=== PATIENT | male | born 1985 | race American Indian/Alaskan Native ===

== ENCOUNTER 2018-01-21 10:52 | Emergency (ER) | payer MEDICARE ==
[2018-01-21 10:53] VITALS: BMI 20.7
[2018-01-21 11:01] VITALS: O2SAT 98
--- NOTE | 2018-01-21 11:43 | C.PDOC ---
History Of Present Illness 32 year old male patient with hx of asthma presents to the ER with c/o right hand pain. Patient reports he punched a wall on November 27. Patent states he went to [facility] [facility] who gave him XR which showed a fracture. [facility] splinted his hand for him , but he took off the splint today. Patent notes after that he started feeling pain. Patient denies weakness and numbness. Chief Complaint (Nursing): Upper Extremity Problem/Injury History Per: Patient History/Exam Limitations: no limitations Onset/Duration Of Symptoms: Hrs Current Symptoms Are (Timing): Still Present Past Medical History Reviewed: Historical Data, Nursing Documentation, Vital Signs Vital Signs: Last Vital Signs Temp 97.6 F 01/21/18 11:56 Pulse 62 01/21/18 11:56 Resp 18 01/21/18 11:56 BP 131/88 01/21/18 11:56 Pulse Ox 98 01/24/18 21:21 - Medical History PMH: Asthma - [facility] Procedures INJECT/INFUSE NEC (04/01/14) NEBULIZER THERAPY (01/20/15) Family History: States: Unknown Family Hx - Social History Hx Tobacco Use: No Hx Alcohol Use: No Hx Substance Use: No - Immunization History Hx Tetanus Toxoid Vaccination: No Hx Influenza Vaccination: No Hx Pneumococcal Vaccination: No Review Of Systems Except As Marked, All Systems Reviewed And Found Negative. Musculoskeletal: Positive for: Hand Pain (right) Neurological: Negative for: Weakness, Numbness Physical Exam - Physical Exam Appears: Well, Non-toxic, No Acute Distress Skin: Normal Color, Warm, Dry Head: Normacephalic Extremity: Normal ROM, Tenderness (right hand ), Capillary Refill (<2 sec ), No Deformity Neurological/Psych: Oriented x3, Normal Speech ED Course And Treatment O2 Sat by Pulse Oximetry: 98 (RA) Pulse Ox Interpretation: Normal Medical Decision Making Medical Decision Making: Impression: right hand pain Plans: -- Prescribed albuterol -- velcro hand splint Reassess: Patient is resting comfortably. Patient states he is feeling better. Patient remains stabled and afebrile. Patient will be given pain medications and albuterol. Patient is also advised to f/u with PMD in 1-2 days. Disposition - Disposition Referrals: [facility] [Outside] [facility] [Outside] [facility] [place] [Outside] Disposition: HOME/ ROUTINE Disposition Time: 12:10 Condition: GOOD Prescriptions: Albuterol HFA [Ventolin HFA 90 mcg/actuation (8 g)] 2 puff IH [id number] #1 puff Ibuprofen [Motrin] 600 mg PO Q6 #20 tab Forms: [facility] (Tristanian) - Clinical Impression Clinical Impression: Hand fracture - Scribe Statement The provider has reviewed the documentation as recorded by the Scribe Shah Do Provider Attestation: All medical record entries made by the Scribe were at my direction and personally dictated by me. I have reviewed the chart and agree that the record accurately reflects my personal performance of the history, physical exam, medical decision making, and the department course for this patient. I have also personally directed, reviewed, and agree with the discharge instructions and disposition.
[2018-01-21 12:00] VITALS: BP 131/88; PULSE 62; RESP 18; TEMP 97.6
== END 2018-01-21 12:10 | disposition home or self-care (01) ==
LOC: C.ER 10:52
DX: S62.91XG Unspecified fracture of right hand, subsequent encounter for fracture with delayed healing (principal); W22.01XD Walked into wall, subsequent encounter

== ENCOUNTER 2018-02-05 11:49 | Emergency (ER) | payer MEDICARE ==
[2018-02-05 11:49] VITALS: BMI 20.7
[2018-02-05] MEDS ORDERED: Alum-Mag Hydrox-Simethicone Susp (30 mL) PO STA (12:53)
[2018-02-05] MEDS ORDERED: Alum-Mag Hydrox-Simethicone Susp (30 mL) ONE (13:29)
[2018-02-05 13:59] LABS: BASO % 0.6 % (0.0-2.0); EOS % 0.7 % (0.0-4.0); HEMOGLOBIN 15.8 g/dL (12.0-18.0); LYMPH # 1.4 K/uL (1.0-4.3); LYMPH % 31.7 % (20.0-40.0); MEAN CELL VOLUME 92.2 fL (80.0-94.0); MEAN CORPUSCULAR HEMOGLOBIN 31.5 pg (27.0-31.0); MEAN CORPUSCULAR HGB CONC 34.2 g/dL (33.0-37.0); MEAN PLATELET VOLUME 8.8 fL (7.2-11.7); MONO # 0.6 K/uL (0.0-0.8); MONO % 12.4 % (0.0-10.0); NEUT # 2.5 K/uL (1.8-7.0); NEUT % 54.6 % (50.0-75.0); NRBC % 0.3 % (0.0-2.0); RED CELL DISTRIBUTION WIDTH 13.7 % (11.5-14.5); WHITE BLOOD COUNT 4.5 K/uL (4.8-10.8)
--- NOTE | 2018-02-05 14:19 | C.PDOC ---
History Of Present Illness 32 y/o male presents to the ER complaining of abdominal pain which has been present for the past 2 days. Patient states that he has been drinking ETOH. Patient reports that he does not have a PMD. Denies having nausea, vomiting, diarrhea, dysuria, and hematuria. Time Seen by Provider: 02/05/18 12:28 Chief Complaint (Nursing): Abdominal Pain History Per: Patient History/Exam Limitations: no limitations Onset/Duration Of Symptoms: Days Current Symptoms Are (Timing): Still Present Severity: Moderate Location Of Pain/Discomfort: Epigastric Radiation Of Pain To:: None Quality Of Discomfort: Cramping Alleviating Factors: None Recent travel outside of the [place]: No Past Medical History Reviewed: Historical Data, Nursing Documentation, Vital Signs Vital Signs: Last Vital Signs Temp 98.5 F 02/05/18 15:29 Pulse 60 02/05/18 15:29 Resp 16 02/05/18 15:29 BP 138/80 02/05/18 15:29 Pulse Ox 99 02/05/18 15:29 - Medical History PMH: Asthma Denies: Diabetes, Hepatitis, HIV, HTN, Chronic Kidney Disease, Seizures, Sexually Transmitted Disease Surgical History: No Surg Hx - [facility] Procedures INJECT/INFUSE NEC (04/01/14) NEBULIZER THERAPY (01/20/15) Family History: States: No Known Family Hx - Social History Hx Tobacco Use: No Hx Alcohol Use: No Hx Substance Use: No - Immunization History Hx Tetanus Toxoid Vaccination: No Hx Influenza Vaccination: No Hx Pneumococcal Vaccination: No Review Of Systems Except As Marked, All Systems Reviewed And Found Negative. Constitutional: Negative for: Fever, Chills Gastrointestinal: Positive for: Nausea, Abdominal Pain Physical Exam - Physical Exam Appears: Non-toxic, No Acute Distress Skin: Normal Color, Warm, Dry Head: Atraumatic, Normacephalic Eye(s): bilateral: Normal Inspection Nose: Normal Oral Mucosa: Moist Neck: Supple Chest: Symmetrical Cardiovascular: Rhythm Regular Respiratory: Normal Breath Sounds, No Rales, No Rhonchi, No Wheezing Gastrointestinal/Abdominal: Normal Exam, Soft, No Tenderness, No Guarding Extremity: Normal ROM Neurological/Psych: Oriented x3, Normal Speech ED Course And Treatment - Laboratory Results Result Diagrams: 02/05/18 13:45 02/05/18 13:45 Lab Interpretation: Normal O2 Sat by Pulse Oximetry: 98 (RA) Pulse Ox Interpretation: Normal Progress Note: Patient treated with maalox. On re-evaluation abdomen soft in no distress Medical Decision Making Medical Decision Making: Plan: --Labs --UA --Maalox PO Disposition Counseled Patient/Family Regarding: Studies Performed, Diagnosis, Need For Followup - Disposition Referrals: [facility] [Outside] [facility] [Outside] Disposition: HOME/ ROUTINE Disposition Time: 15:50 Condition: GOOD Additional Instructions: Follow up with clinic for further evaluation Instructions: Gastritis, Acute Abdomen (Belly Pain) Forms: [employer] (Vietnamese) - POA Present On Arrival: None - Clinical Impression Clinical Impression: Abdominal discomfort - PA / JUICE STANDARDIZER / Resident Statement MD/DO has reviewed & agrees with the documentation as recorded. - Scribe Statement The provider has reviewed the documentation as recorded by the Scribe Oscar Vital Provider Attestation All medical record entries made by the Scribe were at my direction and personally dictated by me. I have reviewed the chart and agree that the record accurately reflects my personal performance of the history, physical exam, medical decision making, and the department course for this patient. I have also personally directed, reviewed, and agree with the discharge instructions and disposition.
[2018-02-05 14:22] LABS: BLOOD UREA NITROGEN 13 mg/dL (9-20); CALCIUM 9.5 mg/dl (8.6-10.4); GFR NON-AFRICAN AMERICAN > 60; LIPASE 100 U/L (23-300)
[2018-02-05 14:38] LABS: ALB/GLOB RATIO 1.4 (1.0-2.1); ALBUMIN 4.8 g/dL (3.5-5.0); ALT/SGPT 35 U/L (21-72); AST/SGOT 42 U/L (17-59)
[2018-02-05 15:31] VITALS: BP 138/80; PULSE 60; RESP 16; TEMP 98.5
[2018-02-05 16:03] VITALS: O2SAT 98
== END 2018-02-05 15:30 | disposition home or self-care (01) ==
LOC: C.ER 11:49
DX: R10.13 Epigastric pain (principal)

== ENCOUNTER 2018-05-23 14:49 | Emergency (ER) | payer MEDICARE ==
[2018-05-23 14:49] VITALS: BMI 20.7
[2018-05-23 14:59] VITALS: TEMP 98
[2018-05-23] MEDS ORDERED: Albuterol-Ipratrop 3 mg / 0.5 (3 ml) UD IH STA (15:36)
[2018-05-23] MEDS ORDERED: Albuterol 0.083% Inhal Sol (2.5 mg/3 mL) UD INH STA (15:36)
[2018-05-23] MEDS ORDERED: Albuterol 0.083% Inhal Sol (2.5 mg/3 mL) UD ONE (15:49)
[2018-05-23] MEDS ORDERED: Albuterol-Ipratrop 3 mg / 0.5 (3 ml) UD ONE (15:49)
--- NOTE | 2018-05-23 15:52 | RAD ---
Date of service: 05/23/2018 HISTORY: productive cough/congestion/SOB COMPARISON: No prior. TECHNIQUE: Chest PA and lateral FINDINGS: LUNGS: No active pulmonary disease. PLEURA: No significant pleural effusion identified. No pneumothorax apparent. CARDIOVASCULAR: No aortic atherosclerotic calcification present. Normal cardiac size. No pulmonary vascular congestion. OSSEOUS STRUCTURES: No significant abnormalities. VISUALIZED UPPER ABDOMEN: Normal. OTHER FINDINGS: None. IMPRESSION: No active disease.
--- NOTE | 2018-05-23 16:04 | C.PDOC ---
History Of Present Illness 32 y/o male pt with hx of asthma presents to the ER c/o SOB and coughing with yellow sputum for a couple of days. Pt denies fever, vomiting, diarrhea and nausea. Time Seen by Provider: 05/23/18 15:03 Chief Complaint (Nursing): Shortness Of Breath History Per: Patient History/Exam Limitations: no limitations Onset/Duration Of Symptoms: Days Current Symptoms Are (Timing): Still Present Initiating Event: Upper Respiratory Illness Past Medical History Reviewed: Historical Data, Nursing Documentation, Vital Signs Vital Signs: Last Vital Signs Temp 98.0 F 05/23/18 14:54 Pulse 90 05/23/18 14:54 Resp 18 05/23/18 15:02 BP 123/81 05/23/18 14:54 Pulse Ox 97 05/23/18 14:54 - Medical History PMH: Asthma, Bronchitis - [facility] Procedures INJECT/INFUSE NEC (04/01/14) NEBULIZER THERAPY (01/20/15) Family History: States: No Known Family Hx - Social History Hx Tobacco Use: No Hx Alcohol Use: No Hx Substance Use: No - Immunization History Hx Tetanus Toxoid Vaccination: No Hx Influenza Vaccination: No Hx Pneumococcal Vaccination: No Review Of Systems Except As Marked, All Systems Reviewed And Found Negative. Constitutional: Negative for: Fever Respiratory: Positive for: Cough (with yellow sputum ), Shortness of Breath Gastrointestinal: Negative for: Nausea, Vomiting, Diarrhea Physical Exam - Physical Exam Appears: Non-toxic, No Acute Distress Skin: Warm, Dry Head: Normacephalic Eye(s): bilateral: Normal Inspection, EOMI Oral Mucosa: Moist Throat: Normal Neck: Normal ROM, Supple Chest: Symmetrical Cardiovascular: Rhythm Regular Respiratory: No Accessory Muscle Use, No Rales, No Rhonchi, No Stridor, Wheezing (b/l ) Neurological/Psych: Oriented x3, Normal Speech ED Course And Treatment O2 Sat by Pulse Oximetry: 97 (RA) Pulse Ox Interpretation: Normal - Other Rad chest X-Ray: Read By Radiologist Interpretation: Accession No. : [id number]. Patient Name / ID : SEBASTIAN MOSQUERA / [id number]. Exam Date : 05/23/2018 15:37:48 ( Approved ). Study Comment : Sex / Age : M / 32Y. Creator : Dm Villalobos MD. Dictator : Dm Villalobos MD. Installation Technician : Heat Set Operator : Dm Villalobos MD. Approver2 : Report Date : 05/23/2018 15:48:21. My Comment : . Date of service: 05/23/2018. HISTORY: productive cough/congestion/SOB. COMPARISON: No prior. TECHNIQUE: Chest PA and lateral. FINDINGS: LUNGS: No active pulmonary disease. PLEURA: No significant pleural effusion identified. No pneumothorax apparent. CARDIOVASCULAR: No aortic atherosclerotic calcification present. Normal cardiac size. No pulmonary vascular congestion. OSSEOUS STRUCTURES: No significant abnormalities. VISUALIZED UPPER ABDOMEN: Normal. OTHER FINDINGS: None. IMPRESSION: No active disease. Progress Note: Plans: --CXR. -- albuterol. -- Prednisone. -- nebulizer. -- peak flow. On re-eval patient feels better and is stable to be d/c home with PMD follow up. Disposition - Disposition Disposition: HOME/ ROUTINE Disposition Time: 16:23 Condition: IMPROVED Additional Instructions: Follow up with your PMD within 1-2 days. Return to ED if feel worse. Prescriptions: Albuterol 0.083% [Albuterol Sulfate 3 Ml] 3 ml IH .Q4-6H #100 vial predniSONE [predniSONE Tab] 2 tab PO DAILY #8 tab Albuterol HFA [Ventolin HFA 90 mcg/actuation (8 g)] 1 puff IH .Q4-6H #1 inhaler Azithromycin [Zithromax] 250 mg PO DAILY #4 tab Instructions: Asthma in Adults, Acute Bronchitis Forms: [facility] (Jamaican) - Clinical Impression Clinical Impression: Bronchitis with asthma, acute - PA / PRE K TEACHER / Resident Statement / has reviewed & agrees with the documentation as recorded. - Scribe Statement The provider has reviewed the documentation as recorded by the Anthony Shah Do All medical record entries made by the Scribe were at my direction and personally dictated by me. I have reviewed the chart and agree that the record accurately reflects my personal performance of the history, physical exam, medical decision making, and the department course for this patient. I have also personally directed, reviewed, and agree with the discharge instructions and disposition.
[2018-05-23 16:37] VITALS: BP 125/79; PULSE 80; RESP 16
[2018-05-23 16:46] VITALS: O2SAT 97
== END 2018-05-23 16:36 | disposition home or self-care (01) ==
LOC: C.ER 14:49
DX: J45.909 Unspecified asthma, uncomplicated (principal); F17.210 Nicotine dependence, cigarettes, uncomplicated

== ENCOUNTER 2018-07-21 19:08 | Emergency (ER) | payer MEDICARE ==
[2018-07-21 19:08] VITALS: BMI 20.7
--- NOTE | 2018-07-21 19:53 | C.PDOC ---
History Of Present Illness Patient presents to the ER with cough and congestion worsening over the past 2 weeks. He is currently speaking in complete sentences, tolerating PO. Denies fever, chills, nausea, or vomiting. Time Seen by Provider: 07/21/18 19:52 Chief Complaint (Nursing): Cough, Cold, Congestion History Per: Patient History/Exam Limitations: no limitations Onset/Duration Of Symptoms: Days (2 weeks) Current Symptoms Are (Timing): Still Present Severity: Moderate Pain Scale Rating Of: 4 Recent travel outside of the [place]: No Past Medical History Reviewed: Historical Data, Nursing Documentation, Vital Signs Vital Signs: Last Vital Signs Temp 97.7 F 07/21/18 19:22 Pulse 63 07/21/18 19:22 Resp 20 07/21/18 19:22 BP 126/90 07/21/18 19:22 Pulse Ox 99 07/21/18 19:22 - Medical History PMH: Asthma, Bronchitis Denies: HIV, HTN, Chronic Kidney Disease, Seizures, Sexually Transmitted Disease - [facility] Procedures INJECT/INFUSE NEC (04/01/14) NEBULIZER THERAPY (01/20/15) Family History: States: No Known Family Hx - Social History Hx Tobacco Use: No Hx Alcohol Use: No Hx Substance Use: No - Immunization History Hx Tetanus Toxoid Vaccination: No Hx Influenza Vaccination: No Hx Pneumococcal Vaccination: No Review Of Systems Constitutional: Negative for: Fever, Chills Cardiovascular: Negative for: Chest Pain, Palpitations Respiratory: Positive for: Cough, Other (Congestion) Gastrointestinal: Negative for: Nausea, Vomiting Neurological: Negative for: Weakness, Numbness Physical Exam - Physical Exam Appears: Non-toxic Skin: Warm, Dry Head: Normacephalic Oral Mucosa: Moist Throat: No Erythema, No Exudate Neck: Trachea Midline, Supple Chest: Symmetrical, No Tenderness Cardiovascular: Rhythm Regular Respiratory: No Rales, Rhonchi (Scattered), Wheezing (Scattered) Gastrointestinal/Abdominal: Soft, No Tenderness Neurological/Psych: Oriented x3 ED Course And Treatment O2 Sat by Pulse Oximetry: 99 (Room air) Pulse Ox Interpretation: Normal Progress Note: Albuterol nebulizer and zithromax administered. Reevaluation Time: 21:28 Reassessment Condition: Improved Critical Care Time - Critical Care Note Total Time (in mins): 30 Documented critical care: time excludes all time spent performing seperately billable procedures. Disposition Counseled Patient/Family Regarding: Studies Performed, Diagnosis, Need For Followup, Rx Given, Smoking Cessation - Disposition Referrals: [facility] [Outside] Disposition: HOME/ ROUTINE Disposition Time: 19:53 Condition: FAIR Additional Instructions: Please return if symptoms recur Prescriptions: Albuterol HFA [Ventolin HFA 90 mcg/actuation (8 g)] 2 puff IH [id number] #1 puff Azithromycin [Zithromax Tri-Josue] 500 mg PO DAILY #3 tablet Prednisone [Deltasone] 20 mg PO DAILY #5 tablet Instructions: Asthma, Adult (DC), Upper Respiratory Infection (ED) Forms: [employer] ([place] Helen[place]) - Clinical Impression Clinical Impression: Bronchitis with asthma, acute - Scribe Statement The provider has reviewed the documentation as recorded by the Scribyaima Garzon All medical record entries made by the Marlysibyaima were at my direction and personally dictated by me. I have reviewed the chart and agree that the record accurately reflects my personal performance of the history, physical exam, medical decision making, and the department course for this patient. I have also personally directed, reviewed, and agree with the discharge instructions and disposition.
[2018-07-21] MEDS: Albuterol-Ipratrop 3 mg / 0.5 (3 ml) UD IH SCH ×2 (20:11→20:33)
[2018-07-21] MEDS ORDERED: Albuterol-Ipratrop 3 mg / 0.5 (3 ml) UD ONE ×3 (20:14→20:20)
[2018-07-21 21:09] VITALS: BP 115/79; PULSE 57; RESP 16; TEMP 97.5
[2018-07-21 21:31] VITALS: O2SAT 99
== END 2018-07-21 21:38 | disposition home or self-care (01) ==
LOC: C.ER 19:08
DX: J45.909 Unspecified asthma, uncomplicated (principal)

== ENCOUNTER 2018-08-02 15:48 | Emergency (ER) | payer MEDICARE ==
[2018-08-02 15:49] VITALS: BMI 20.7
[2018-08-02 15:54] VITALS: BP 130/88; PULSE 65; RESP 16; O2SAT 98
[2018-08-02 16:01] VITALS: TEMP 98.4
--- NOTE | 2018-08-02 16:14 | C.PDOC ---
History Of Present Illness 33 y/o male pt with hx of asthma presents to the ER c/o a bent pinky finger on right hand for x8 months. Pt was seen at [facility] and was told to f/u with a hand surgeon. Pt did not f/u with surgery and is now back. Pt has no other associated sx or complaints at this time. Pt request for refill his asthma pump. Time Seen by Provider: 08/02/18 15:57 Chief Complaint (Nursing): Upper Extremity Problem/Injury History Per: Patient History/Exam Limitations: no limitations Onset/Duration Of Symptoms: Other (x8 months ) Current Symptoms Are (Timing): Still Present Past Medical History Reviewed: Historical Data, Nursing Documentation, Vital Signs Vital Signs: Last Vital Signs Temp 98.4 F 08/02/18 15:51 Pulse 65 08/02/18 15:51 Resp 16 08/02/18 15:51 BP 130/88 08/02/18 15:51 Pulse Ox 98 08/02/18 15:51 - Medical History PMH: Asthma, Bronchitis - [facility] Procedures INJECT/INFUSE NEC (04/01/14) NEBULIZER THERAPY (01/20/15) Family History: States: No Known Family Hx - Social History Hx Tobacco Use: No Hx Alcohol Use: No Hx Substance Use: No - Immunization History Hx Tetanus Toxoid Vaccination: No Hx Influenza Vaccination: No Hx Pneumococcal Vaccination: No Review Of Systems Except As Marked, All Systems Reviewed And Found Negative. Constitutional: Negative for: Fever, Chills Musculoskeletal: Positive for: Other (poorly healed right pink finger ) Physical Exam - Physical Exam Appears: Well, Non-toxic, No Acute Distress Skin: Warm, Dry Head: Normacephalic Extremity: Normal ROM (FROM of other fingers ), No Tenderness, Capillary Refill (<2 sec), Deformity (hyperflexed at the DIP and extended at PIP), No Swelling ED Course And Treatment O2 Sat by Pulse Oximetry: 98 (RA) Pulse Ox Interpretation: Normal Medical Decision Making Medical Decision Making: Pt told to f/u with hand surgery to fix his right pinky finger Disposition Counseled Patient/Family Regarding: Diagnosis, Need For Followup - Disposition Referrals: Reece Sanches MD [Staff Provider] - Disposition: HOME/ ROUTINE Disposition Time: 16:17 Condition: GOOD Instructions: Common Finger Injuries (DC) Forms: [facility] (Romanian), General Discharge Instructions - POA Present On Arrival: None - Clinical Impression Clinical Impression: Deformity, [place] neck, finger - Scribe Statement The provider has reviewed the documentation as recorded by the Scribe Alyssa Michael Provider Attestation: All medical record entries made by the Scribe were at my direction and personally dictated by me. I have reviewed the chart and agree that the record accurately reflects my personal performance of the history, physical exam, medical decision making, and the department course for this patient. I have also personally directed, reviewed, and agree with the discharge instructions and disposition.
== END 2018-08-02 16:24 | disposition home or self-care (01) ==
LOC: C.ER 15:48
DX: M20.031 Swan-neck deformity of right finger(s) (principal)